=== PATIENT | male | born 1945 | race Caucasian/White ===

== ENCOUNTER 2019-02-22 10:04 | Inpatient (IN) | payer MEDICARE, BC ==
[2019-02-22 11:11] LABS: #Lymphocytes 0.6 thou/uL (1.20-3.40); #Monocytes 0.5 thou/uL (0.11-0.59); %Eosinophils 0.1 % (0.0-10.0); %Lymphocytes 3.9 % (21.0-51.0); %Monocytes 3.9 % (0.0-10.0); %Neutrophils 92.1 % (42.0-75.0); Hemoglobin 13.6 g/dL (14.0-18.0); Mean Corpuscular HGB CONC 33.6 g/dL (32.0-36.0); Mean Corpuscular Hemoglobin 32.4 pg (27.0-31.0); Mean Corpuscular Volume 96.5 fL (78.0-98.0); Mean Platelet Volume 7.5 fL (7.4-10.4); Platelet Count 403 thou/uL (130-400); RBC Distribution Width 12.1 % (11.5-14.5); Red Blood Cell (RBC) Count 4.19 mill/uL (4.70-6.10); White Blood Cell (WBC) Count 14.1 thou/uL (4.8-10.8)
[2019-02-22 11:17] LABS: PTT 33.2 SEC (22.9-36.1); Prothrombin Time 12.8 SEC (12.0-14.7)
[2019-02-22 11:39] LABS: ALT (SGPT) 15 U/L (8-55); AST (SGOT) 13 U/L (5-34); Albumin 4.5 g/dL (3.4-4.8); Alkaline Phosphatase 57 U/L (40-150); Anion Gap 13 mmol/L (10-20); BUN (Urea Nitrogen) 16 mg/dL (8.4-25.7); Bilirubin, Total 0.3 mg/dL (0.2-1.2); Calc. Creatinine Clearance 0 mL/min (70-130); Calcium 9.9 mg/dL (7.8-10.44); Carbon Dioxide 26 mmol/L (23-31); Chloride 101 mmol/L (98-107); Estimated GFR-MDRD Greater than 90; Globulin 2.7 g/dL (2.4-3.5); Glucose 112 mg/dL (83-110); Potassium 4.3 mmol/L (3.5-5.1); Protein, Total 7.2 g/dL (5.8-8.1); Sodium 136 mmol/L (136-145)
[2019-02-22] MEDS ORDERED: Gadobenate Dimeglumine 529 MG/1 ML (20ML VIAL) ONE (12:05)
[2019-02-22] MEDS ORDERED: Piperacillin/Tazobactam 4.5 GM VIAL ONE (12:27)
[2019-02-22] MEDS ORDERED: Ondansetron PF 4 MG/2 ML Vial IVP PRN (13:43)
[2019-02-22] MEDS ORDERED: Ondansetron ODT 4 MG TAB SL PRN (13:43)
[2019-02-22] MEDS ORDERED: Sodium Chloride 0.9% 1,000 ML IV SCH (13:43)
[2019-02-22] MEDS ORDERED: Morphine 2 MG/ML SYRINGE SLOW IVP SCH ×2 (13:45→17:00)
[2019-02-22] MEDS ORDERED: Heparin 1,000 UNITS/ML VIAL ONE (14:30)
[2019-02-22] MEDS ORDERED: Vancomycin HCl 1.5 GM in Sodium Chloride 0.9% 250 ML 300 ML IVPB SCH (15:00)
[2019-02-22 15:05] VITALS: BMI 21.4
[2019-02-22 15:16] LABS: Lactic Acid 0.7 mmol/L (0.5-2.2)
--- NOTE | 2019-02-22 15:38 | PDOC.FPRHP ---
- History of Present Illness Chief Complaint: Low Back Pain History of Present Illness: Mr. Louise is a 73 y/o male with no significant past medical history who presents to the ED from his PCP in [place] following an MRI Lumbar Spine that demonstrated discitis, osteomyelitis and microabscess formation. He initially presents to a different ED in [place] on 02/18 for an acute episode of lower back pain. He stated that he was refilling his coffee cup in his kitchen when he suddenly felt a sharp pain in his lower back, localized to the right side. The patient states that the pain was so severe that it caused him to "pass out". The pain did not radiate and was not relieved by position or medication. He was told in the ED that this was most likely a "slipped disc", and he was discharged with a prescription of Grandview 5/325 and was told to follow- up with his PCP. During the follow-up with his PCP, an MRI Lumbar Spine was ordered, which demonstrated the aforementioned findings. Mr. Louise denies any recent or remote trauma, surgery, intravenous drug use, travel, sick contacts or toxic exposures. He additionally denies any fevers, chills, N/V/D or significant weight loss. - Allergies/Adverse Reactions Allergies Allergy/AdvReac Type Severity Reaction Status Date / Time No Known Allergies Allergy Verified 02/22/19 13:45 - History PMHx: PSHx: FHx: Social: - Review of Systems General: denies: fever/chills, weight/appetite/sleep changes, night sweats Eyes: denies: vision changes ENT: reports: nasal congestion Respiratory: denies: cough, congestion, shortness of breath Cardiovascular: denies: chest pain, palpitation, edema Gastrointestinal: denies: nausea, vomiting, diarrhea, abdominal pain, GI bleeding Genitourinary: denies: dysuria, discharge Skin: denies: rashes, lesions Musculoskeletal: reports: pain. denies: tenderness, swelling, arthritis/ arthralgias Neurological: reports: syncope. denies: numbness, weakness Psychological: denies: anxiety, depression - Vital signs BP: [129/66] HR: [62] RR: [] Tmax: [97.4] Pox: [99]% on [Room] Wt: [71 kg] - Physical Exam Constitutional: awake, alert and oriented, well developed, other (Grimacing in pain) HEENT: normocephalic and atraumatic, PERRLA, conjunctiva clear, no scleral icterus, grossly normal vision, grossly normal hearing, MMM, oropharynx clear Neck: supple, trachea midline Chest: no-tender to palpation, no lesions Heart: RRR, normal S1/S2, no murmurs/rubs/gallops, pulses present, no edema Lungs: CTAB, no respiratory distress, good air movement, no rales/rhonchi, no wheezing, no retractions Abdomen: soft, non-tender, no masses/distention Musculoskeletal: normal structure, normal tone, ROM grossly normal, other (No signs of trauma or inflammation. No TTP along spinous processes or paraspinal muscles. ROM, strength and sensation all intact.) Neurological: no focal deficit, CN II-XII intact, normal sensation Skin: no rash/lesions, no jaundice Heme/Lymphatic: no unusual bruising or bleeding, no purpura, no petechia FMR H&P: Results - Labs Result Diagrams: 02/22/19 10:52 02/22/19 10:52 Lab results: WBC 14.1 thou/uL (4.8-10.8) H 02/22/19 10:52 Hgb 13.6 g/dL (14.0-18.0) L 02/22/19 10:52 Hct 40.4 % (42.0-52.0) L 02/22/19 10:52 MCV 96.5 fL (78.0-98.0) 02/22/19 10:52 Plt Count 403 thou/uL (130-400) H 02/22/19 10:52 Neutrophils % 92.1 % (42.0-75.0) H 02/22/19 10:52 ESR Westergren 11 mm/hr (Less than 20) 02/22/19 10:52 Sodium 136 mmol/L (136-145) 02/22/19 10:52 Potassium 4.3 mmol/L (3.5-5.1) 02/22/19 10:52 Chloride 101 mmol/L (98-107) 02/22/19 10:52 Carbon Dioxide 26 mmol/L (23-31) 02/22/19 10:52 BUN 16 mg/dL (8.4-25.7) 02/22/19 10:52 Creatinine 0.74 mg/dL (0.7-1.3) 02/22/19 10:52 Glucose 112 mg/dL (83-110) H 02/22/19 10:52 Lactic Acid 0.7 mmol/L (0.5-2.2) 02/22/19 14:52 Calcium 9.9 mg/dL (7.8-10.44) 02/22/19 10:52 Total Bilirubin 0.3 mg/dL (0.2-1.2) 02/22/19 10:52 AST 13 U/L (5-34) 02/22/19 10:52 ALT 15 U/L (8-55) 02/22/19 10:52 Alkaline Phosphatase 57 U/L (40-150) 02/22/19 10:52 C-Reactive Protein 1.63 mg/dL (= or < 0.5) H 02/22/19 10:52 Serum Total Protein 7.2 g/dL (5.8-8.1) 02/22/19 10:52 Albumin 4.5 g/dL (3.4-4.8) 02/22/19 10:52 FMR H&P: A/P - Problem List (1) Discitis of lumbar region Current Visit: Yes Status: Acute Code(s): M46.46 - DISCITIS, UNSPECIFIED, LUMBAR REGION (2) Osteomyelitis Current Visit: Yes Status: Acute Code(s): M86.9 - OSTEOMYELITIS, UNSPECIFIED (3) Abscess Current Visit: Yes Status: Acute Code(s): L02.91 - CUTANEOUS ABSCESS, UNSPECIFIED - Plan 1. Discitis, Osteomyelitis and Microabscess Formation -Found on MRI secondary to acute LBP -Repeat MRI: Pending -No significant HPI or PMH, no history of intravenous drug use -Unremarkable physical exam other than pain -Minimally elevated WBC and ProCalcitonin -Received Zosyn in ED -Neurosurgery: Recommend antibiotic therapy - no surgery -Infectious Disease: Consulted, awaiting recommendations -Admitted to Medical Floor -Empiric antibiotic regimen started on 02/22 - Vancomycin 1.5 g IV Q8H, Ceftriaxone 2 g IV Q24H -Consider LP Diet: Heart Healthy Activity: Ad Monica DVT Prophylaxis: SCDs & Lovenox Dispo: Admit to Medical Floor and begin empiric antibiotic regimen. Await follow -up MRI results and ID recommendation. Consider Surgery consultation and PICC line placement for skilled nursing antibiotic therapy based. FMR H&P: Upper Level - Plan Date/Time: 02/22/19 0477 I, David Russell MD, have evaluated this patient and agree with findings/plan as outlined by validation intern resident. Pertinent changes/additions are listed here. Mr. Louise is a 73 year old M with no sig PMH who presened to the ED from PCP office following a Lumbar spine MRI showing discitis, osteomyelitis, and microabscess formation, severe central canal stenosis. He has had lower back pain, described as sharp worsened by movement. Pain rated as 10/10. Pain did not significantly improvement with OTC pain meds. He has also been taking Grandview and steroids that provided some pain relief. Initial labs were WBC 14.1 with 92% PMNs and CRP of 1.63. Neurosurg was consulted from the ED and recommended that hospital team admit patient and continue antibiotics. No surgical intervention at this time. Will continue to follow neurosurg recs. Consulting ID for osteo/discitis. Continue empiric antibiotics. Please see validation intern note above with I have reviewed and agree with.
--- NOTE | 2019-02-22 17:02 | MRI ---
MRI LUMBAR SPINE WITH AND WITHOUT CONTRAST: 02/22/19 INDICATIONS: Concern for osteomyelitis discitis. COMPARISON: Comparison made to MRI lumbar spine with and without contrast performed at [facility] yesterday on 02/21/19. FINDINGS: Today's exam show the same findings from yesterday's MRI. There are degenerative disc changes at all levels with disc narrowing. Posterolisthesis at L2-3, L3-4 and L4-5 levels. Central canal stenosis at these levels due to diffuse disc bulge and facet hypertrophy as described yesterday. There is increased T2 and STIR signal in the disc space at L4-5 with end plate enhancement involving both superior end plates at L4-5. There is abnormal epidural enhancement posteriorly beginning at the L3 level with evidence of posteri or epidural abscess formation in the epidural space slightly to the right of midline compressing the thecal sac. This abnormal epidural enhancement and epidural abscess extends inferiorly to the L4-5 le lauren. IMPRESSION: Today's findings correspond to the MRI from yesterday at [facility]. Evidence of d iscitis osteomyelitis at L4-5 and there is evidence of posterior epidural abscess beginning at the mi d body of L3 and extending through the mid body of L5. Abnormal enhancement involving the right L5-S1 facet is also noted as described on yesterday's exam. POS: JESS
[2019-02-22] MEDS: cefTRIAXone\\ROCEPHIN 2 GM in Sodium Chloride 0.9% 100 ML IVPB SCH (17:26)
[2019-02-22] MEDS: HYDROcodone/Acetaminophen 5/325 mg Tablet PO PRN (19:01)
[2019-02-22] MEDS: Famotidine 20 MG TAB PO SCH (20:01)
--- NOTE | 2019-02-22 20:31 | CON ---
DATE OF CONSULTATION: HISTORY OF PRESENT ILLNESS: The patient is a 73-year-old male, who is reportedly otherwise healthy, who presented to the emergency department for severe back pain. The patient reports that he has had episodic chronic back pain over the years, generally treated conservatively with [id number] medications and rest, but he developed severe low back pain 1 week ago after getting up out of bed and walking across the [place]. The patient describes it as sudden, severe, 10/10, sharp stabbing pain with radiation into the right hip and proximal leg. He was initially evaluated at [facility] ER with a noncontrast CT, which showed degenerative changes. His pain persisted, and he followed up with his PCP and had outpatient MRI at the [facility] with and without contrast, which showed T2 signal changes at L3-L4 and L4-L5 with what appears to be a very small multiloculated fluid collection, most pronounced at the L3-L4 area, which is slightly compressive. The patient also has some T2 signal changes along the disk space at L3-L4 and L4-L5. These changes are concerning for osteomyelitis and diskitis. Fluid collection also may represent a very small epidural abscess. However, this is not clearly identified by current imaging, and it is overall a poor quality MRI. The patient denies any fever or any risk factors for osteomyelitis/diskitis. PAST MEDICAL HISTORY: Reports he is otherwise healthy. Denies any other medical issues. Does not take any medications. SOCIAL HISTORY: He does not smoke. He does not drink, and he does not use any drugs. REVIEW OF SYSTEMS: Per HPI. PHYSICAL EXAMINATION: VITAL SIGNS: BP is 154/74, pulse 70, respirations 16, temperature is 98.1. HEENT: Head, normocephalic and atraumatic. Eyes; PERRLA. Extraocular movements are intact. ENT; oral mucosa is pink, intact, and moist. NECK: Nontender to palpation. Free active range of motion. No meningismus or nuchal rigidity. CARDIAC: Regular rate and rhythm. MUSCULOSKELETAL: Free active range of motion of all extremities. No focal motor weakness. No reflex asymmetry. BACK: He is tender to palpation over the lower lumbar spine. LABORATORY DATA: Notable diagnostics: Elevated WBC 14.1 with a left shift. Elevated lactic acid 2.4. Elevated CRP 1.63. ASSESSMENT AND PLAN: This is a 73-year-old otherwise healthy male with no obvious risk factors for osteomyelitis/diskitis, who presents for severe back pain and has an MRI concerning for osteomyelitis and diskitis at L3-L4 and L4-L5. There is also concern for small epidural abscess at L3-L4, but overall, this is a poor quality MRI. We will plan to treat the patient with IV antibiotics, and ID has been consulted for assistance with this. We will also plan to repeat his MRI as inpatient with and without contrast. I have discussed this plan with Dr. Bhatia, who is in agreement. Job ID: [id number]
--- NOTE | 2019-02-22 22:38 | CON ---
DATE OF CONSULTATION: 02/22/2019 REASON FOR CONSULTATION: Infection in lumbosacral spine area. HISTORY OF PRESENT ILLNESS: A 73-year-old quite healthy gentleman, who does not have any past medical history and has developed a fairly rapid onset of low back pain for the past 10 days and had an MRI, which showed findings suggestive of diskitis, osteomyelitis, lumbosacral spine with paravertebral abscesses. The patient was admitted and is currently sitting up by the bedside and cannot transfer to the bed because of the intensity of the pain. He denies headaches. No visual symptoms, sore throat, odynophagia, or dysphagia. No cough or sputum production. No chest pain. No abdominal pain. He is able to void. No incontinence and has not had any constipation or diarrhea. He has radiculopathic pain radiating down to lower extremities. His cognitive function appears to be intact. PAST MEDICAL HISTORY: Negative. He did have a history of chronic back pain before. 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 ALLERGIES: NONE. FAMILY HISTORY: Noncontributory. CURRENT MEDICATIONS: 1. Ceftriaxone. 2. Vancomycin. PHYSICAL EXAMINATION: VITAL SIGNS: T-max 97.4, blood pressure 120/60, pulse 62, respirations 17, O2 saturation 99%. SKIN: Not remarkable. The patient has a peripheral IV access. No Mckenzie catheter. No lymphadenopathy. HEENT: Ocular movements conjugate. Oral cavity still with quite a few teeth in place with some decay. NECK: Supple. No jugular vein distention or carotid bruits. No thyromegaly. LUNGS: Symmetric. Clear breath sounds. HEART: S1 and S2, regular rate. No S3 or S4. Diminished heart sounds. No murmurs. ABDOMEN: Soft. Not distended or tender. No ascites. No bladder distention. MUSCULOSKELETAL: No joint inflammatory activity. NEUROLOGIC: Difficult to perform neuro examination because of the intensity of his back pain. His cognitive function is intact. LABORATORY DATA: White cell count 14,000, hemoglobin 13.6, platelets 403 with 92% neutrophils. INR 1.0. Chemistry was normal. Glucose 112. Lactic acid 2.4. CRP was 1.63. Procalcitonin 0.04. Lumbar spine MRI has been repeated. ASSESSMENT: Acute onset of severe lumbosacral spine pain with marked functional limitation with MRI findings that are suggestive of an inflammatory process, likely an infectious process. Diskitis, osteomyelitis and then paraspinal phlegmon with abscess formation is the likely scenario. The usual pathogens including Staphylococcus aureus, streptococci, gram-negative rods with the first two in the more likely scenario here. The patient has a history of skin abscesses in the past which could be the potential source with bacteremia and seeding of the area. I have contacted Radiology and they suggested a CT with contrast to determine if the patient would be eligible for percutaneous aspiration of the area with the intent of obtaining a microbiological information. In the meantime, continue current regimen. If sampling is not feasible and if the blood cultures remain negative, then we will have to treat empirically with 2 drugs probably combination of vancomycin and Rocephin or vancomycin and cefepime for a protracted period of time anywhere from 6 to 10 weeks, sometimes longer. Some patients require surgical intervention for pain control or for management of neurological complications. For example, if there is a development of cauda equina or instability of the spine. In general, surgical intervention in those areas has pretty good results with low rates of infection persistence, but in most cases of lumbosacral spine infection, the management is truly medical with antimicrobial therapy. Job ID: [id number] [facility]AN[facility]
[2019-02-23] MEDS ORDERED: Ibuprofen 800 MG TAB PO PRN (00:42)
[2019-02-23] MEDS ORDERED: Acetaminophen 325 MG TAB PO PRN (00:42)
[2019-02-23] MEDS: Ibuprofen 800 MG TAB PO PRN ×3 (04:14→20:18)
[2019-02-23 04:34] LABS: #Basophils 0.1 thou/uL (0.0-0.2); #Eosinphils 0.1 thou/uL (0.0-0.7); #Lymphocytes 1.6 thou/uL (1.20-3.40); #Monocytes 0.5 thou/uL (0.11-0.59); #Neutrophils 4.7 thou/uL (1.40-6.50); %Basophils 0.9 % (0.0-1.0); %Eosinophils 1.4 % (0.0-10.0); %Lymphocytes 22.5 % (21.0-51.0); %Monocytes 6.9 % (0.0-10.0); %Neutrophils 68.3 % (42.0-75.0); Hemoglobin 11.5 g/dL (14.0-18.0); Mean Corpuscular HGB CONC 34.1 g/dL (32.0-36.0); Mean Corpuscular Hemoglobin 33.1 pg (27.0-31.0); Mean Corpuscular Volume 97.1 fL (78.0-98.0); Mean Platelet Volume 7.4 fL (7.4-10.4); Platelet Count 312 thou/uL (130-400); RBC Distribution Width 12.1 % (11.5-14.5); Red Blood Cell (RBC) Count 3.48 mill/uL (4.70-6.10); White Blood Cell (WBC) Count 6.9 thou/uL (4.8-10.8)
[2019-02-23 04:55] LABS: ALT (SGPT) 12 U/L (8-55); AST (SGOT) 11 U/L (5-34); Albumin 3.5 g/dL (3.4-4.8); Alkaline Phosphatase 44 U/L (40-150); Anion Gap 10 mmol/L (10-20); BUN (Urea Nitrogen) 15 mg/dL (8.4-25.7); Bilirubin, Total 0.3 mg/dL (0.2-1.2); Calc. Creatinine Clearance 94 mL/min (70-130); Calcium 8.6 mg/dL (7.8-10.44); Carbon Dioxide 28 mmol/L (23-31); Chloride 105 mmol/L (98-107); Estimated GFR-MDRD Greater than 90; Globulin 2.1 g/dL (2.4-3.5); Glucose 93 mg/dL (83-110); Potassium 3.8 mmol/L (3.5-5.1); Protein, Total 5.6 g/dL (5.8-8.1); Sodium 139 mmol/L (136-145)
--- NOTE | 2019-02-23 04:56 | PDOC.FM ---
- Subjective Subjective: Mr. Louise was resting comfortably at the time of evaluation. He had no overnight complaints and felt that his pain was adequately controlled between and 10/12. - Objective Vital Signs & Weight: Vital Signs (12 hours) Temp Pulse Resp BP Pulse Ox 02/23/19 04:16 95 02/23/19 00:00 99.0 F 46 L 12 99/51 L 97 02/22/19 20:01 97 02/22/19 20:00 98.0 F 60 16 112/56 L 98 Weight Weight 71.668 kg Result Diagrams: 02/23/19 04:00 02/23/19 04:00 Phys Exam - Physical Examination Constitutional: NAD HEENT: PERRLA, moist MMs, sclera anicteric, oral pharynx no lesions Neck: supple, full ROM Respiratory: no wheezing, no rales, no rhonchi Cardiovascular: RRR, no significant murmur, no rub Gastrointestinal: soft, non-tender, no distention Musculoskeletal: no edema, pulses present Neurological: non-focal, moves all 4 limbs Psychiatric: normal affect Dx/Plan (1) Discitis of lumbar region Code(s): M46.46 - DISCITIS, UNSPECIFIED, LUMBAR REGION Status: Acute (2) Osteomyelitis Code(s): M86.9 - OSTEOMYELITIS, UNSPECIFIED Status: Acute (3) Abscess Code(s): L02.91 - CUTANEOUS ABSCESS, UNSPECIFIED Status: Acute - Plan Plan: 1. Discitis, Osteomyelitis and Micro-abscess Formation -Found on MRI secondary to acute LBP -Repeat MRI: Consistent with initial findings -No significant HPI or PMH, no history of intravenous drug use -Unremarkable physical exam other than pain -Minimally elevated WBC and ProCalcitonin -Received Zosyn in ED -Neurosurgery: Recommend antibiotic therapy - no surgery -Infectious Disease: Dr. Terry consulted on 02/22 - agrees with current plan of care -Admitted to Medical Floor for IV antibiotics -Empiric antibiotic regimen started on 02/22 - Vancomycin 1 g IV Q12H, Ceftriaxone 2 g IV Q24H -Plan for CT w/ contrast to assess for possible micro-abscess drainage Diet: Heart Healthy Activity: Ad Monica DVT Prophylaxis: SCDs & Lovenox Dispo: Patient admitted to Medical Floor for empiric antibiotic regimen of Vancomycin and Ceftriaxone. Await blood culture results and plan for CT w/ contrast today. Consider Surgery consultation and PICC line placement for prison antibiotic therapy based. Addendum - Attending - Attending Attestation Date/Time: 02/23/19 1202 I personally evaluated the patient and discussed the management with Dr. Tellez at 0755 am. I agree with the History, Examination, Assessment and Plan documented above with any addition or exceptions noted below. Discitis/Osteomyelitis of lumbar spine- appreciate ID recs. Will get CT with contrast per IR recs to see if abscess is drainable for culture. For now continue pain management and IV abx.
[2019-02-23] MEDS: Vancomycin HCl 1 GM in Premix Bag 1 BAG IVPB SCH ×2 (05:04→17:03)
[2019-02-23] MEDS: Famotidine 20 MG TAB PO SCH ×2 (08:13→20:18)
[2019-02-23] MEDS: Enoxaparin Sodium 40 MG/0.4 ML SYRINGE SC SCH (08:13)
[2019-02-23] MEDS: HYDROcodone/Acetaminophen 5/325 mg Tablet PO PRN ×2 (10:50→17:03)
--- NOTE | 2019-02-23 12:31 | PRG ---
DATE OF SERVICE: 02/23/2019 The patient was seen and examined. I agree with Reyna Workman's evaluation on 02/22/2019. The patient is a 73-year-old male with chronic lumbar spinal disease, who has had deterioration over the past 1 week with severe exacerbation of low back pain. He does not have complaints or findings of neurologic deficit. MRI scan reveals severe degenerative findings from L2 to L5 with lumbar stenosis from L3 to L5 and enhancement and possible posterior epidural abscess from L3 to L5. The abscess is not compressive. It was stable on followup MRI yesterday. IMPRESSION AND PLAN: The patient has findings consistent with osteomyelitis and epidural abscess. I would recommend treating this medically given the absence of neurologic findings. We will defer to Dr. Terry regarding the need for percutaneous biopsy and antibiotic treatment. Job ID: [id number]
[2019-02-23] MEDS: cefTRIAXone\\ROCEPHIN 2 GM in Sodium Chloride 0.9% 100 ML IVPB SCH (14:05)
[2019-02-24] MEDS: HYDROcodone/Acetaminophen 5/325 mg Tablet PO PRN ×5 (00:25→22:21)
[2019-02-24 05:57] LABS: Vancomycin, Trough 10.5 ug/mL
[2019-02-24] MEDS: Vancomycin HCl 1 GM in Premix Bag 1 BAG IVPB SCH (06:10)
[2019-02-24] MEDS: Vancomycin HCl 1.25 GM in Sodium Chloride 0.9% 250 ML 250 ML IVPB SCH ×2 (06:15→17:26)
--- NOTE | 2019-02-24 06:20 | PDOC.FM ---
- Subjective Subjective: Patient was resting comfortably at the time of evaluation. He reported no overnight events and feels that is pain is adequately controlled. - Objective Vital Signs & Weight: Vital Signs (12 hours) Temp Pulse Resp BP Pulse Ox 02/24/19 04:00 98.1 F 50 L 20 129/75 98 02/23/19 20:00 98.3 F 58 L 96 H 100/54 L 96 Weight Weight 71.668 kg I&O: 02/22/19 02/23/19 02/24/19 06:59 06:59 06:59 Intake Total 850 1943.7 Output Total 1350 Balance 850 593.7 Result Diagrams: 02/23/19 04:00 02/23/19 04:00 Phys Exam - Physical Examination Constitutional: NAD HEENT: PERRLA, moist MMs, sclera anicteric, oral pharynx no lesions Neck: supple, full ROM Respiratory: no wheezing, no rales, no rhonchi, clear to auscultation bilateral Cardiovascular: RRR, no significant murmur, no rub Gastrointestinal: soft, non-tender, no distention, positive bowel sounds Musculoskeletal: no edema, pulses present Neurological: non-focal, normal sensation, moves all 4 limbs Psychiatric: normal affect Skin: no rash Dx/Plan (1) Discitis of lumbar region Code(s): M46.46 - DISCITIS, UNSPECIFIED, LUMBAR REGION Status: Acute (2) Osteomyelitis Code(s): M86.9 - OSTEOMYELITIS, UNSPECIFIED Status: Acute (3) Abscess Code(s): L02.91 - CUTANEOUS ABSCESS, UNSPECIFIED Status: Acute - Plan Plan: 1. Discitis, Osteomyelitis and Micro-abscess Formation -Found on MRI secondary to acute LBP -Repeat MRI: Consistent with initial findings -No significant HPI or PMH, no history of intravenous drug use -Unremarkable physical exam other than pain -Minimally elevated WBC and ProCalcitonin -Received Zosyn in ED -Neurosurgery: Recommend antibiotic therapy - no surgery required -Infectious Disease: Dr. Terry consulted on 02/22 - agrees with current plan of care -Admitted to Medical Floor for IV antibiotics -Empiric antibiotic regimen started on 02/22 - Vancomycin 1 g IV Q12H, Ceftriaxone 2 g IV Q24H -Coordinate with Infectious Disease to plan for outpatient therapy Diet: Heart Healthy Activity: Ad Monica DVT Prophylaxis: SCDs & Lovenox Dispo: Patient admitted to Medical Floor for empiric antibiotic regimen of Vancomycin and Ceftriaxone. Coordinate with Infectious Disease for outpatient therapy - oral antibiotic regimen vs Surgery consultation and PICC line placement for IV antibiotic regimen. Patient will be evaluated by PT in the interim. Expected LOS < 48H Addendum - Attending - Attending Attestation Date/Time: 02/24/19 1252 I personally evaluated the patient and discussed the management with Dr. Tellez at 8 am. I agree with the History, Examination, Assessment and Plan documented above with any addition or exceptions noted below. Discitis/Osteomyelitits of Lumbar spine- will need manager intermediate antibiotic treatment. Appreciate Dr. yari hunter.
[2019-02-24] MEDS: Famotidine 20 MG TAB PO SCH ×2 (07:52→20:11)
[2019-02-24] MEDS: Enoxaparin Sodium 40 MG/0.4 ML SYRINGE SC SCH (07:52)
[2019-02-24] MEDS: Ibuprofen 800 MG TAB PO PRN ×2 (08:24→17:26)
[2019-02-24] MEDS: cefTRIAXone\\ROCEPHIN 2 GM in Sodium Chloride 0.9% 100 ML IVPB SCH (14:21)
--- NOTE | 2019-02-24 16:05 | PRG ---
DATE OF SERVICE: 02/24/2019 SUBJECTIVE: The patient has improved in terms of pain and mobility. He still has the spasms intermittently. The CT scan was canceled because the 2nd radiologist thought that he had enough information to recommend against attempting a CT-guided aspirate since the area of interest is not approachable. OBJECTIVE: GENERAL: The patient is currently without headaches, is oriented, alert, in no distress. LUNGS: Clear. HEART: S1 and S2 regular rate. ABDOMEN: Soft, not distended. He has those healing areas in the skin of the pelvis area right side which probably are the source of the bacteremia which eventually led to colonization of the L4-L5 space. No bladder distention. He is able to void and no problems there. LABORATORY DATA: White cell count is down from 14 to 6.9, hemoglobin 11, platelets 312. Creatinine 0.69. Liver profile normal. Microbiology with negative blood cultures at 48 hours. ASSESSMENT AND DISCUSSION: Fairly normal health prior to this process which developed over the past few days with diskitis, osteomyelitis, and paraspinal muscle involvement with pyomyositis of the L4-L5 space. There is epidural abscess as well. We are not going to be able to obtain microbiology definition in this case, so we will need to treat empirically with, I would say the same combination that seems to be effective at this time with Rocephin and vancomycin at least 8 weeks probably longer. In view of the amount of inflammatory process, weekly monitoring. We will leave orders for Marketing Services Coordinator. PICC line placement. Job ID: [id number]
[2019-02-25] MEDS: HYDROcodone/Acetaminophen 5/325 mg Tablet PO PRN ×2 (03:00→17:55)
[2019-02-25] MEDS: Vancomycin HCl 1.25 GM in Sodium Chloride 0.9% 250 ML 250 ML IVPB SCH (05:46)
--- NOTE | 2019-02-25 05:58 | PDOC.FM ---
- Subjective Subjective: Pt c/o 5/10 pain, that intensifies to 8/10 at its worst in his lower back. He states the pain radiates down his RLE. Denies any numbness, weakness or paresthesia to LE's. - Objective MAR Reviewed: Yes Vital Signs & Weight: Vital Signs (12 hours) Temp Pulse Resp BP Pulse Ox 02/25/19 04:00 98.1 F 48 L 18 124/69 96 02/24/19 20:00 98.6 F 65 18 94/55 L 95 Weight Weight 71.668 kg I&O: 02/23/19 02/24/19 02/25/19 06:59 06:59 06:59 Intake Total 850 1943.7 Output Total 1350 Balance 850 593.7 Result Diagrams: 02/23/19 04:00 02/25/19 05:47 Phys Exam - Physical Examination Constitutional: NAD HEENT: PERRLA, moist MMs, sclera anicteric Neck: no JVD, supple, full ROM Respiratory: no wheezing, no rales, no rhonchi, clear to auscultation bilateral Cardiovascular: RRR, no significant murmur, no rub Gastrointestinal: soft, non-tender, no distention, positive bowel sounds Musculoskeletal: no edema, pulses present Tenderness overlying lumbar spine. Ambulating with roller walker. Decreased ROM of lumbar spine. Neurological: non-focal, normal sensation, moves all 4 limbs Psychiatric: normal affect, A&O x 3 Skin: no rash, normal turgor, cap refill <2 seconds Dx/Plan (1) Abscess Code(s): L02.91 - CUTANEOUS ABSCESS, UNSPECIFIED Status: Acute (2) Discitis of lumbar region Code(s): M46.46 - DISCITIS, UNSPECIFIED, LUMBAR REGION Status: Acute (3) Osteomyelitis Code(s): M86.9 - OSTEOMYELITIS, UNSPECIFIED Status: Acute Qualifiers: Osteomyelitis type: unspecified type Osteomyelitis location: other site Qualified Code(s): M86.9 - Osteomyelitis, unspecified - Plan Plan: 1. Discitis, Osteomyelitis and Micro-abscess Formation -Found on MRI secondary to acute LBP -Repeat MRI: Consistent with initial findings -No significant HPI or PMH, no history of intravenous drug use -PE does not indicate red flag symptoms: no LE weakness or paresthesia. No subjective red flag symptoms of saddle paresthesias, urinary retention or bowel incontinence. -Minimally elevated WBC and ProCalcitonin -Received Zosyn in ED -Neurosurgery: Recommend antibiotic therapy - no surgery required -Infectious Disease: Dr. Terry consulted on 02/22 - agrees with current plan of care -Admitted to Medical Floor for IV antibiotics -Empiric antibiotic regimen started on 02/22 - Vancomycin 1 g IV Q12H, Ceftriaxone 2 g IV Q24H -Coordinate with Infectious Disease to plan for outpatient therapy and PICC line placement. Diet: Heart Healthy Activity: Ad Monica DVT Prophylaxis: SCDs & Lovenox Dispo: Patient admitted to Medical Floor for empiric antibiotic regimen of Vancomycin and Ceftriaxone. Coordinate with Infectious Disease for outpatient therapy - oral antibiotic regimen, PICC line placement for IV antibiotic regimen. Patient will be evaluated by PT in the interim. Expected LOS < 48H Addendum - Attending - Attending Attestation Date/Time: 02/25/19 5568 I personally evaluated the patient and discussed the management with Dr. Gonzalez. I agree with the History, Examination, Assessment and Plan documented above with any addition or exceptions noted below. Patient here for diskitis and osteomyelitis of spine with epidural abscess. Will need emt intermediate abx. Needs PICC line. Discuss rehab versus discharge home. ID on board. Non surgical.
[2019-02-25 06:47] LABS: Calc. Creatinine Clearance 97 mL/min (70-130); Estimated GFR-MDRD Greater than 90
[2019-02-25 06:58] LABS: Prothrombin Time 12.8 SEC (12.0-14.7)
[2019-02-25] MEDS: Enoxaparin Sodium 40 MG/0.4 ML SYRINGE SC SCH (08:12)
[2019-02-25] MEDS: Famotidine 20 MG TAB PO SCH ×2 (08:12→20:13)
[2019-02-25] MEDS: Ibuprofen 800 MG TAB PO PRN ×2 (08:27→23:01)
--- NOTE | 2019-02-25 12:03 | SPC ---
Ultrasound-guidedleftupper extremity PICC placement: 02/25/2019 HISTORY: IV antibiotics, osteomyelitis FINDINGS: Informed consent obtained prior to the procedure. Left antecubital fossa prepped and draped in normal sterile fashion. Skin overlying theleft basilicvein anesthetized with 1% buffered lidocaine. With direct sonographic g uidance, vascular access is obtained via the left basilicvein and an 0.018in wire was advanced to the cavoatrial junction. Intravascular length is calculated at 42 cm and of the PICC is cut according ly. Needle is removed and replaced with a peel-away sheath. The PICC was advanced over the wire. Wire and peel-away sheath were removed. The tip of the catheter overlies the cavoatrial junction. The port flushes well and the catheter is ready for use. Exposure data: 0.1 minutes of fluoroscopic time 309 mGy per centimeter squared IMPRESSION: Successful ultrasound guided placement of a leftupper extremity PICC.
[2019-02-25] MEDS: cefTRIAXone\\ROCEPHIN 2 GM in Sodium Chloride 0.9% 100 ML IVPB SCH (15:41)
[2019-02-25 17:21] LABS: Vancomycin, Trough 12.8 ug/mL
[2019-02-25] MEDS: Vancomycin HCl 1.5 GM in Sodium Chloride 0.9% 250 ML 300 ML IVPB SCH (17:56)
[2019-02-26] MEDS: Vancomycin HCl 1.5 GM in Sodium Chloride 0.9% 250 ML 300 ML IVPB SCH (05:19)
[2019-02-26] MEDS: Ibuprofen 800 MG TAB PO PRN ×2 (05:19→16:58)
[2019-02-26 06:02] LABS: #Basophils 0.1 thou/uL (0.0-0.2); #Eosinphils 0.2 thou/uL (0.0-0.7); #Monocytes 0.5 thou/uL (0.11-0.59); #Neutrophils 4.3 thou/uL (1.40-6.50); %Basophils 0.9 % (0.0-1.0); %Lymphocytes 16.3 % (21.0-51.0); %Monocytes 8.3 % (0.0-10.0); %Neutrophils 71.5 % (42.0-75.0); Hemoglobin 11.5 g/dL (14.0-18.0); Mean Corpuscular HGB CONC 33.8 g/dL (32.0-36.0); Mean Corpuscular Hemoglobin 32.7 pg (27.0-31.0); Mean Corpuscular Volume 96.6 fL (78.0-98.0); Mean Platelet Volume 7.1 fL (7.4-10.4); Platelet Count 329 thou/uL (130-400); RBC Distribution Width 12.1 % (11.5-14.5); Red Blood Cell (RBC) Count 3.51 mill/uL (4.70-6.10); White Blood Cell (WBC) Count 6.1 thou/uL (4.8-10.8)
--- NOTE | 2019-02-26 06:09 | PDOC.FM ---
- Subjective Subjective: Pt states he had trouble sleeping last night because of the pain. Pain if feeling more relieved this morning after pain medications. Pt agrees with plan to go to inpatient rehab for IV antibiotics and recovery. Pt states he had X3 diarrhea BM's last night. C. diff stool studies sent to lab, given pts antibiotic use. - Objective MAR Reviewed: Yes Vital Signs & Weight: Vital Signs (12 hours) Temp Pulse Resp BP Pulse Ox 02/26/19 04:13 97.8 F 50 L 16 117/62 96 02/25/19 19:27 98.3 F 61 18 121/65 98 Weight Weight 71.668 kg I&O: 02/24/19 02/25/19 02/26/19 06:59 06:59 06:59 Intake Total 1943.7 Output Total 1350 Balance 593.7 Result Diagrams: 02/26/19 05:54 02/26/19 05:54 Phys Exam - Physical Examination Constitutional: NAD HEENT: PERRLA, moist MMs, sclera anicteric Neck: no nodes, no JVD, supple, full ROM Respiratory: no wheezing, no rales, no rhonchi, clear to auscultation bilateral Cardiovascular: RRR, no significant murmur, no rub Gastrointestinal: soft, non-tender, no distention, positive bowel sounds Musculoskeletal: no edema, pulses present Neurological: non-focal, normal sensation, moves all 4 limbs Psychiatric: normal affect, A&O x 3 Skin: no rash, normal turgor, cap refill <2 seconds Dx/Plan (1) Abscess Code(s): L02.91 - CUTANEOUS ABSCESS, UNSPECIFIED Status: Acute (2) Discitis of lumbar region Code(s): M46.46 - DISCITIS, UNSPECIFIED, LUMBAR REGION Status: Acute (3) Osteomyelitis Code(s): M86.9 - OSTEOMYELITIS, UNSPECIFIED Status: Acute Qualifiers: Osteomyelitis type: unspecified type Osteomyelitis location: other site Qualified Code(s): M86.9 - Osteomyelitis, unspecified (4) Gastroenteritis Code(s): K52.9 - NONINFECTIVE GASTROENTERITIS AND COLITIS, UNSPECIFIED Status : Acute - Plan Plan: 1. Diskitis, Osteomyelitis and Micro-abscess Formation of lumbar spine -Found on MRI secondary to acute LBP -Repeat MRI: Consistent with initial findings -No significant HPI or PMH, no history of intravenous drug use -PE does not indicate red flag symptoms: no LE weakness or paresthesia. No subjective red flag symptoms of saddle paresthesias, urinary retention or bowel incontinence. -Minimally elevated WBC and ProCalcitonin -Received Zosyn in ED -Neurosurgery: Recommend IV antibiotic therapy - no surgery required -Infectious Disease: Dr. Terry consulted on 02/22 - agrees with current plan of care -Admitted to Medical Floor for IV antibiotics -Empiric antibiotic regimen started on 02/22 - Vancomycin 1 g IV Q12H, Ceftriaxone 2 g IV Q24H -Coordinate with Infectious Disease to plan for outpatient therapy -PICC line placed on 02/25 2. Gastroenteritis - Diarrhea X3 overnight. - Sent C. Diff stool studies to lab given the antibiotic use. - Added probiotic to daily regimen. Diet: Heart Healthy Activity: Ad Monica DVT Prophylaxis: SCDs & Lovenox Dispo: Patient admitted to Medical Floor for empiric antibiotic regimen of Vancomycin and Ceftriaxone. Coordinate with Infectious Disease for outpatient therapy - PICC line placed for IV antibiotic regimen. Patient will be evaluated by PT and in patient rehab in the interim. Expected LOS < 48H Addendum - Attending - Attending Attestation Date/Time: 02/26/19 0718 I personally evaluated the patient and discussed the management with Dr. Gonzalez. I agree with the History, Examination, Assessment and Plan documented above with any addition or exceptions noted below. Patient overall doing well. PICC line placed. We are awaiting placement decision , hopefully to inpatient rehab. Cdiff screen pending due to new onset diarrhea. Pain well controlled.
[2019-02-26 06:30] LABS: ALT (SGPT) 10 U/L (8-55); AST (SGOT) 12 U/L (5-34); Albumin 3.4 g/dL (3.4-4.8); Alkaline Phosphatase 48 U/L (40-150); Anion Gap 10 mmol/L (10-20); BUN (Urea Nitrogen) 13 mg/dL (8.4-25.7); Bilirubin, Total 0.3 mg/dL (0.2-1.2); Calc. Creatinine Clearance 100 mL/min (70-130); Calcium 8.7 mg/dL (7.8-10.44); Carbon Dioxide 25 mmol/L (23-31); Chloride 107 mmol/L (98-107); Estimated GFR-MDRD Greater than 90; Glucose 94 mg/dL (83-110); Potassium 4.3 mmol/L (3.5-5.1); Protein, Total 5.4 g/dL (5.8-8.1); Sodium 138 mmol/L (136-145)
[2019-02-26] MEDS: Famotidine 20 MG TAB PO SCH (07:53)
[2019-02-26] MEDS: Enoxaparin Sodium 40 MG/0.4 ML SYRINGE SC SCH (07:53)
[2019-02-26] MEDS ORDERED: Floranex Packet PO SCH (09:00)
[2019-02-26] MEDS: cefTRIAXone\\ROCEPHIN 2 GM in Sodium Chloride 0.9% 100 ML IVPB SCH (16:53)
[2019-02-26 18:00] VITALS: BP 129/71; TEMP 98
--- NOTE | 2019-02-26 19:00 | CON ---
PROGRESS NOTE: 02/26/2019 HISTORY OF PRESENT ILLNESS: Mr. Louise is feeling much better. He is sitting by the bedside. No pain whatsoever. Much more mobile. No headaches. No shortness of breath or abdominal pain. No diarrhea. Voiding without difficulty. PHYSICAL EXAMINATION: VITAL SIGNS: Normal. LUNGS: Clear. HEART: S1 and S2, regular rate. ABDOMEN: Soft, not distended or tender. No ascites. No bladder distention. EXTREMITIES: Moves all extremities equally. : No problems with urination. LABORATORY DATA: White cell count 6.1, hemoglobin 11.5, platelets 329. Creatinine 0.65. Liver profile normal. Blood cultures negative. C. diff negative. ASSESSMENT AND DISCUSSION: L4-L5 space infection. Negative blood cultures. Some epidural involvement, but mostly pyomyositis and disk and bone involvement. The patient to continue on vancomycin and Rocephin, and is going to rehab after that. Decision to be made if he is going to be treated in the home setting or in my office that will depend on his mobility and financial considerations. Job ID: [id number] [facility]
--- NOTE | 2019-02-27 03:31 | DIS ---
DATE OF ADMISSION: 02/22/2019 DATE OF DISCHARGE: 02/26/2019 ADMITTING ATTENDING: Dr. Montoya DISCHARGE ATTENDING: Dr. Hewitt CONSULTS: Case management, Infectious Disease, Dr. Terry. Neurosurgery, Dr. Sadler. Physical therapy evaluation and treat, and rehab screening. PROCEDURES: PICC line placement on 02/25/2019. PRIMARY DIAGNOSES: 1. Diskitis. 2. Osteomyelitis. 3. Pyomyositis of L4-L5 space. 4. Epidural abscess. 5. Gastroenteritis. DISCHARGE MEDICATIONS: 1. Acetaminophen 650 p.o. q.6 hours. 2. Acidophilus/bulgaricus probiotic 1 g p.o. daily. 3. Lovenox 40 mg subcu daily. 4. Pepcid 20 mg p.o. b.i.d. 5. [place] 5 mg/325 mg p.o. q.4 hours p.r.n. 6. Ibuprofen 800 mg p.o. q.8 hours p.r.n. 7. Rocephin 2 g IV PB q.24 hours. 8. Vancomycin 1.5 g IV PB b.i.d. HISTORY OF PRESENT ILLNESS/HOSPITAL COURSE: Mr. Louise is a 73-year-old previously healthy male with no significant past medical problems, presented to the emergency department on 02/22/2019 after seeing his primary care physician for an MRI of his lumbar spine that showed diskitis, osteomyelitis, and an epidural abscess formation. He was initially seen by [facility] on 02/18 for his acute low back pain, diagnosed with a herniated disk and sent home on conservative management. The patient's pain worsened which led him to go to his PCP, who ordered an MRI showing Diskitis, leading ultimately to admission to [facility]. Dr. Terry for Infectious Disease saw the patient and recommended 6-8 weeks of IV antibiotic therapy to treat the infectious process in the lumbar spine. Dr. Sadler, neurosurgeon, also saw the patient. He stated that the osteomyelitis and epidural abscess was nonoperative at this time and to continue antibiotic IV therapy. Significant laboratory findings for the patient were white blood cell count of 14.1, which is 6.1 on discharge, hemoglobin of 13.6, which is now 11.5 on discharge, hematocrit 40.1, now 33.9 on discharge. C-reactive protein was 1.63 on admission. Procalcitonin was 0.04 on admission. Lactic acid 0.7 on admission. The patient's vancomycin trough on 02/24 was 10.5, on 02/25 was 12.8. Blood cultures had no growth at 48 hours. The patient developed diarrhea on 02/25/2019. C difficile assay for antigen and toxin was negative. Placed the patient on a probiotic for daily use, with the antibiotic therapy he is receiving like causing this diarrhea. The patient is very weak and unable to perform his daily activities of life and feels that he needs more rehab before returning home as he will not be able to care for himself fully at home. The patient is only able to ambulate with a rolling walker around in his room and experiences significant pain when sitting. My fear is that the patient would go home and stay in bed, leading to deterioration of his illness. It is my recommendation that he be placed in inpatient rehab until recovered, to be capable of caring for himself fully at home. I recommend inpatient rehab to help patient learn to manage the PICC line and receive antibiotic therapy through the PICC line outpatient. The patient has pretty significant pain from the pyomyositis involvement, from the osteomyelitis and diskitis at L4-L5 space. Inpatient rehab would help the patient gain strength while recovering at the same time to return home to his day-to-day life. DISPOSITION: The patient is stable upon discharge to inpatient rehab. PICC line placed in the left upper extremity, will receive IV antibiotic therapy and rehab. DISCHARGE INSTRUCTIONS: 1. Location: Inpatient rehab, [facility]. 2. Diet: Regular diet. 3. Activity: As tolerated and per Physical/Occupational Therapy recommendations. 4. Followup: on a weekly basis with Dr. Terry to monitor for inflammatory process of the lumbar spine and improvement. Follow up with primary care. Job ID: [id number] [facility]
== END 2019-02-26 19:23 | DRG 95 ==
LOC: ERS 10:04 → T4-B 12:10
PROVIDERS: ADMIT Family Medicine; ATTEND Family Medicine
PROC: 02HV33Z Insertion of Infusion Device into Superior Vena Cava, Percutaneous Approach (ICD-10-PCS; principal; 2019-02-25)
PROC: B548ZZA Ultrasonography of Superior Vena Cava, Guidance (ICD-10-PCS; 2019-02-25)
DX: G06.1 Intraspinal abscess and granuloma (principal); M46.26 Osteomyelitis of vertebra, lumbar region; M60.08 Infective myositis, other site; G89.29 Other chronic pain; M46.46 Discitis, unspecified, lumbar region; K52.9 Noninfective gastroenteritis and colitis, unspecified; Z79.899 Other long term (current) drug therapy
CPT/HCPCS: 36415; 36569; 72158; 80053; 80202; 82565; 83605; 84145; 85025; 85610; 85652; 85730; 86140; 87040; 87324; 87449; 96374; A9577; C1751; J0696; J1644; J1650; J2270; J2543; J3370; J3490; J7050

== ENCOUNTER 2022-03-29 08:56 | Outpatient (CLI) | payer MEDICARE, BC ==
[2022-03-29 11:51] LABS: #Basophils 0.1 10x3/uL (0.0-0.2); #Eosinphils 0.1 10x3/uL (0.0-0.5); #Monocytes 0.4 10x3/uL (0.0-1.1); #Neutrophils 3.9 10x3/uL (1.5-8.4); %Basophils 0.9 % (0.0-2.0); %Eosinophils 1.5 % (0.0-6.0); %Lymphocytes 19.1 % (18.0-47.0); %Monocytes 7.7 % (0.0-10.0); %Neutrophils 70.6 % (40.0-75.0); Hemoglobin 13.5 g/dL (13.5-17.5); Mean Corpuscular HGB CONC 33.5 g/dL (32.0-36.0); Mean Corpuscular Hemoglobin 32.4 pg (27.0-33.0); Mean Corpuscular Volume 96.6 fl (81.2-95.1); Mean Platelet Volume 12.3 fl (7.4-10.4); Platelet Count 210 10x3/uL (150-450); RBC Distribution Width 13.2 % (11.5-14.5); Red Blood Cell (RBC) Count 4.17 10x6/uL (4.32-5.72); White Blood Cell (WBC) Count 5.5 10x3/uL (3.5-10.5)
[2022-03-29 12:02] LABS: Anion Gap 15 mmol/L (10-20); BUN (Urea Nitrogen) 16 mg/dL (8.4-25.7); Calc. Creatinine Clearance 0 mL/min (70-130); Calcium 9.3 mg/dL (7.8-10.44); Carbon Dioxide 25 mmol/L (23-31); Chloride 107 mmol/L (98-107); Estimated GFR 92; Glucose 69 mg/dL (83-110); Potassium 4.6 mmol/L (3.5-5.1); Sodium 142 mmol/L (136-145)
== END 2022-03-29 08:57 | disposition home or self-care (01) ==
LOC: LABBT 08:56
PROVIDERS: ATTEND Surgery
DX: Z01.812 Encounter for preprocedural laboratory examination (principal); K40.90 Unilateral inguinal hernia, without obstruction or gangrene, not specified as recurrent
CPT/HCPCS: 80048; 85025

== ENCOUNTER 2022-04-01 09:44 | Day surgery (SDC) | payer MEDICARE, BC ==
[2022-03-31 09:45] VITALS: BMI 22.4
[2022-04-01] MEDS ORDERED: Glycopyrrolate 0.2 MG/ML 5 ML SYRINGE ONE (13:38)
[2022-04-01] MEDS ORDERED: Dexamethasone 20 MG/5 ML VIAL ONE (13:38)
[2022-04-01] MEDS ORDERED: NEOSTIGMINE 3 MG/3 ML SYR 3 MG/3 ML SYRINGE ONE (13:38)
[2022-04-01] MEDS ORDERED: PROPOFOL 200 MG/20 ML VIAL ONE (13:38)
[2022-04-01] MEDS ORDERED: Rocuronium Bromide 10 MG/ML (10ML VIAL) ONE (13:38)
[2022-04-01] MEDS ORDERED: ePHEDrine 50 MG/ML VIAL ONE (13:38)
[2022-04-01] MEDS ORDERED: Ondansetron PF 4 MG/2 ML Vial ONE (13:38)
[2022-04-01] MEDS ORDERED: fentaNYL Citrate/PF 100 MCG/2 ML SYRINGE ONE (13:43)
[2022-04-01] MEDS ORDERED: Bupivacaine/Epinephrine 0.25% 30 ML VIAL ONE (13:46)
[2022-04-01] MEDS ORDERED: CEFAZOLIN 2 GM VIAL ONE (13:53)
[2022-04-01] MEDS ORDERED: Sodium Chloride 0.9% 100 ML ONE (13:53)
[2022-04-01] MEDS ORDERED: FENTANYL 50 MCG/ML VIAL 50 MCG/ML VIAL ONE (15:32)
== END 2022-04-01 17:55 | disposition home or self-care (01) ==
LOC: SDC 09:44
PROVIDERS: ATTEND Surgery
PROC: 0YU54JZ Supplement Right Inguinal Region with Synthetic Substitute, Percutaneous Endoscopic Approach (ICD-10-PCS; principal; 2022-04-01)
PROC: 8E0W4CZ Robotic Assisted Procedure of Trunk Region, Percutaneous Endoscopic Approach (ICD-10-PCS; 2022-04-01)
DX: K40.90 Unilateral inguinal hernia, without obstruction or gangrene, not specified as recurrent (principal); N40.0 Benign prostatic hyperplasia without lower urinary tract symptoms; Z79.899 Other long term (current) drug therapy; Z88.1 Allergy status to other antibiotic agents
CPT/HCPCS: 49650; C1781; J3010; J1100; J2405; J2704; J3490

== ENCOUNTER 2023-10-05 12:00 | Inpatient (IN) | payer MEDICARE, BC ==
[2023-10-05 12:38] VITALS: BMI 22.5
[2023-10-10] MEDS ORDERED: PROPOFOL 20 ML ONE (06:51)
[2023-10-10] MEDS ORDERED: fentaNYL PF 100 MCG/2 ML SYRINGE ONE ×2 (06:51→10:12)
[2023-10-10] MEDS ORDERED: Lidocaine 1% PF 5 ML VIAL ONE (06:54)
[2023-10-10] MEDS ORDERED: Rocuronium Bromide 10 MG/ML (10ML VIAL) ONE (06:54)
[2023-10-10] MEDS ORDERED: Bupivacaine 0.25% HCL 30 ML VIAL ONE (07:02)
[2023-10-10] MEDS ORDERED: Midazolam HCl 2 mg/2 ml Vial ONE (07:03)
[2023-10-10] MEDS ORDERED: fentaNYL 50 mcg/mL 1 mL Vial ONE ×4 (07:03→10:45)
[2023-10-10] MEDS ORDERED: Sodium Chloride 0.9% 100 ML ONE (07:26)
[2023-10-10] MEDS ORDERED: cefOXitin 2 GM VIAL ONE (07:26)
[2023-10-10] MEDS ORDERED: ePHEDrine Sulfate 50 MG/10 ML VIAL ONE (07:51)
[2023-10-10] MEDS ORDERED: Dexamethasone 4 mg/ml Vial ONE (07:52)
[2023-10-10] MEDS ORDERED: Glycopyrrolate 0.2 MG/ML 5 ML SYRINGE ONE (07:56)
[2023-10-10] MEDS ORDERED: Ondansetron PF 4 MG/2 ML Vial ONE (09:24)
[2023-10-10] MEDS ORDERED: SUGAMMADEX SODIUM 200 MG/2 ML VIAL ONE (09:24)
[2023-10-10] MEDS ORDERED: Ondansetron HCl/PF 4 MG/2 ML Vial IVP PRN (09:29)
[2023-10-10] MEDS ORDERED: Promethazine HCl 25 MG/ML VIAL IM PRN ×2 (09:29→09:59)
[2023-10-10] MEDS ORDERED: Acetaminophen 325 MG TAB PO PRN (09:59)
[2023-10-10] MEDS ORDERED: traMADol HCl 50 MG TAB PO PRN ×2 (09:59)
[2023-10-10] MEDS ORDERED: hydrALAZINE 20 MG/ML VIAL SLOW IVP PRN (09:59)
[2023-10-10] MEDS ORDERED: Ondansetron PF 4 MG/2 ML Vial IVP PRN (09:59)
[2023-10-10] MEDS ORDERED: Ipratropium/Albuterol 3 ML NEB NEB PRN (09:59)
[2023-10-10] MEDS: Ketorolac Tromethamine 30 MG (1 mL) VIAL IVP SCH (14:03)
[2023-10-10] MEDS: cefOXitin Sodium 1 GM in Sodium Chloride 0.9% 100 ML IVPB SCH (15:12)
[2023-10-10] MEDS: D5 1/2 NS w/20 mEq KCL 1,000 ML IV SCH (15:16)
[2023-10-10] MEDS: Fentanyl 100 MCG/2 ML VIAL SLOW IVP PRN (15:18)
[2023-10-11 06:28] LABS: #Basophils Less than 0.03 10x3/uL (0.0-0.2); %Basophils 0.3 % (0.0-1.0); %Eosinophils 1.4 % (0.0-10.0); %Lymphocytes 15.2 % (21.0-51.0); %Monocytes 9.6 % (0.0-10.0); %Neutrophils 73.2 % (42.0-75.0); Hematocrit 28.3 % (42.0-52.0); Hemoglobin 8.6 g/dL (14.0-18.0); Mean Corpuscular HGB CONC 30.4 g/dL (32.0-36.0); Mean Corpuscular Hemoglobin 28.4 pg (27.0-31.0); Mean Corpuscular Volume 93.4 fL (78.0-98.0); Platelet Count 217 10x3/uL (130-400); RBC Distribution Width 24.2 % (11.5-14.5); Red Blood Cell (RBC) Count 3.03 mill/uL (4.70-6.10)
[2023-10-11 06:50] LABS: Anion Gap 12 mmol/L (10-20); BUN (Urea Nitrogen) 10 mg/dL (8.4-25.7); Calc. Creatinine Clearance 94 mL/min (70-130); Carbon Dioxide 20 mmol/L (23-31); Chloride 109 mmol/L (98-107); Estimated GFR 94; Glucose 90 mg/dL (83-110); Potassium 3.5 mmol/L (3.5-5.1); Sodium 137 mmol/L (136-145)
[2023-10-11 07:43] LABS: Anisocytosis SLIGHT = 6-15 cells HPF (0-5); Band 5 % (5-11); Burr Cells SLIGHT = 2-5 cells HPF (0-1); Eosinophils 1 % (0-10); Lymphocytes 9 % (21-51); Macrocytosis SLIGHT = 6-15 cells HPF (0-5); Monocytes 6 % (0-10); Neutrophil 79 % (42-75); Nucleated RBC (Manual Ct) 1 % (0); Ovalocytes SLIGHT = 2-5 cells HPF (0-1); Platelet Adequacy Comment Platelets Normal
[2023-10-11] MEDS: Pantoprazole DR 40 MG TAB PO SCH (09:14)
[2023-10-11] MEDS: Enoxaparin 40 MG (0.4 mL) SYRINGE SC SCH (09:14)
[2023-10-12 07:43] VITALS: BP 130/61; TEMP 98
== END 2023-10-12 12:17 | disposition home or self-care (01) | DRG 331 ==
LOC: SURG A 10-10 05:57 → EDSTATUS 10-10 12:00 → SJJU 10-10 13:03
PROVIDERS: ADMIT Surgery; ATTEND Surgery
PROC: 0DBF4ZZ Excision of Right Large Intestine, Percutaneous Endoscopic Approach (ICD-10-PCS; principal; 2023-10-10)
DX: C18.9 Malignant neoplasm of colon, unspecified (principal); Z79.899 Other long term (current) drug therapy; Z88.2 Allergy status to sulfonamides; N40.0 Benign prostatic hyperplasia without lower urinary tract symptoms; Z98.890 Other specified postprocedural states
CPT/HCPCS: 36415; 36416; 80048; 85025; 88309; A4314; A4333; J0665; J0694; J1100; J1650; J1885; J2250; J2405; J2704; J3010; J3480; J3490

== ENCOUNTER 2024-03-18 10:38 | Day surgery (SDC) | payer MEDICARE, BC ==
[2024-03-18] MEDS ORDERED: Sodium Bicarbonate 2.5 MEQ/5 ML SDV ONE (10:41)
[2024-03-18] MEDS ORDERED: Lidocaine 1% PF 5 ML VIAL ONE (10:41)
== END 2024-03-18 12:33 | disposition home or self-care (01) ==
LOC: ULT 10:38
PROVIDERS: ATTEND Family Medicine
PROC: 0G9G3ZZ Drainage of Left Thyroid Gland Lobe, Percutaneous Approach (ICD-10-PCS; principal; 2024-03-18)
DX: E04.1 Nontoxic single thyroid nodule (principal)
CPT/HCPCS: 10005; 88173; 88305